=== PATIENT | male | born 1990 | race American Indian/Alaskan Native ===

== ENCOUNTER 2020-09-25 16:44 | Emergency (ER) | payer SELFPAY ==
--- NOTE | 2020-09-25 18:05 | Event Note ---
ED Screening Note Date of service: 09/25/20 Time: 18:05 ED Screening Note: Patient complains of abdominal pain and nausea and vomiting x3 days Symptoms improved with hot showers Admits to high of marijuana intake This initial assessment/diagnostic orders/clinical plan/treatment(s) is/are subject to change based on patients health status, clinical progression and re- assessment by fellow clinical providers in the ED. Further treatment and workup at subsequent clinical providers discretion. Patient/guardian urged not to elope from the ED as their condition may be serious if not clinically assessed and managed. Initial orders include: Labs
[2020-09-25 18:37] LABS: Hematocrit 49.2 % (35.5-45.6); Mean Corpuscular HGB Conc 35 % (32-34); Mean Corpuscular Volume 95 fl (84-94); Platelet Count 210 K/mm3 (140-440); Red Blood Count 5.18 M/mm3 (3.65-5.03); Red Cell Distribution Width 13.1 % (13.2-15.2)
[2020-09-25 18:58] LABS: Alanine Aminotransferase 35 units/L (7-56); BUN/Creatinine Ratio 21; Blood Urea Nitrogen 19 mg/dL (9-20); Calcium 9.7 mg/dL (8.4-10.2); Hemolysis Index 26
[2020-09-25 19:55] VITALS: BP 142/98
[2020-09-25 20:10] LABS: RBC Morphology Normal; Total Cells Counted 100
[2020-09-25] MEDS ORDERED: ONDANSETRON 4 MG ODT TAB PO ONE (21:35)
[2020-09-25] MEDS ORDERED: LIDOCAINE VISCOUS 2% 15 ML ORAL LIQD PO ONE (21:35)
[2020-09-25] MEDS ORDERED: ALUM-MAG HYDROXIDE-SIMETHICONE 200-200-20MG/5ML ORAL LIQD 30 ML PO ONE (21:35)
[2020-09-25] MEDS ORDERED: FAMOTIDINE 20 MG TAB PO ONE (21:35)
[2020-09-25] MEDS ORDERED: DICYCLOMINE 20 MG TAB PO ONE (21:36)
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
--- NOTE | 2020-09-27 10:37 | Electrocardiograph Report ---
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
== END 2020-09-25 23:51 | disposition home or self-care (01) ==
LOC: ED 16:44
DX: A08.4 Viral intestinal infection, unspecified (principal); K21.9 Gastro-esophageal reflux disease without esophagitis; R11.2 Nausea with vomiting, unspecified; R19.7 Diarrhea, unspecified; R10.13 Epigastric pain; J45.909 Unspecified asthma, uncomplicated; F12.90 Cannabis use, unspecified, uncomplicated; Z88.0 Allergy status to penicillin; Z79.899 Other long term (current) drug therapy
CPT/HCPCS: 36415; 80053; 83690; 85007; 85025; 93005; Q0162